=== PATIENT | female | born 1955 | race Caucasian/White ===

== ENCOUNTER 2020-06-09 08:32 | Emergency (ER) | payer OTHER ==
[~2020-06-09] VITALS: Ht 172.7 cm; Wt 82.7 kg
[2020-06-09 08:40] VITALS: BP 101/51
[2020-06-09] MEDS ORDERED: oxyCODONE/APAP 5/325 1 TAB TABLET PO ONE (09:00)
--- NOTE | 2020-06-09 09:11 | PHYS DOC ---
Past Medical History Past Medical History: High Cholesterol Past Surgical History: Cholecystectomy, Other Additional Past Surgical Histo: FACIAL SURGERY Smoking Status: Current Every Day Smoker Alcohol Use: None General Adult EDM: Chief Complaint: LOWEREXTREMITY INJURY HPI: HPI: Patient is a 64 year old female who presents to the Emergency Room complaining of right ankle pain. Patient was taking out her trash when she stepped wrong and fell. She states she heard a "crack" and has since not be able to walk on it. She denies any other injuries. Unknown last tetanus shot. Review of Systems: Review of Systems: General: Denies fever, chills, sweats, fatigue Eyes: Denies drainage, blurred vision, eye redness HENT: Denies rhinorrhea, sore throat, earache Respiratory: Denies cough, shortness of breath, wheezing Cardiac: Denies edema, palpitations, chest pain GI: Denies abdominal pain, Nausea, vomiting MSK: Denies back pain, neck pain Skin: Denies rash, jaundice Neuro: Denies headache, dizziness Psychiatric: Denies SI/HI Heart Score: Risk Factors: Risk Factors: DM, Current or recent (<one month) smoker, HTN, HLP, family history of CAD, obesity. Risk Scores: Score 0 - 3: 2.5% MACE over next 6 weeks - Discharge Home Score 4 - 6: 20.3% MACE over next 6 weeks - Admit for Clinical Observation Score 7 - 10: 72.7% MACE over next 6 weeks - Early Invasive Strategies Current Medications: Current Medications Medications (Trade) Dose Ordered Sig/Ladarius Start Time Stop Time Status Last Admin Dose Admin Oxycodone/ Acetaminophen (Percocet 5/325) 1 tab 1X ONCE 06/09/20 09:00 06/09/20 09:01 UNV Physical Exam: PE: General: Awake, alert, NAD. Well Nourished, well hydrated. Cooperative HEENT: Atraumatic, EOMI, PERRL, airway patent, moist oral mucosa Neck: Supple, trachea midline Respiratory: CTA bilaterally, normal effort, no wheezing/crackles CV: RRR, no murmur, cap refill <2 GI: Soft, nondistended, nontender, no masses MSK: RLE: swelling to ankle with medial and lateral malleolus tenerness, abrasion to mid leal, abrasion to medial and lateral ankles, abrasion to top of foot Skin: Warm, dry, see above Neuro: A&O x3, speech NL, sensory and motor grossly intact, no focal deficits Psych: Normal affect, normal mood, not suicidal or homicidal EKG: EKG: [] Radiology/Procedures: Radiology/Procedures: [] Course & Med Decision Making: Course & Med Decision Making Pertinent Labs and Imaging studies reviewed. (See chart for details) Patient is a 64 year old female who presents with R ankle pain after a fall. She has no other injuries. She has in intact range of motion distally with normal pulses and sensation. Unknown last tetanus. Tetanus will be updated today. Patient was given percocet for pain. Xray was ordered to evaluate for acute fractures. Xray shows fibula fracture. Patient placed in posterior splint. She will be discharged home with crutches and will follow up with orthopedics in 1 week. Patient's test results and vitals while in the ED were fully reviewed and discussed with the patient. Patient is stable and at this time does not need admission to the hospital. We have discussed strict return precautions and the importance of following up with their Primary Care Physician. Patient stated understanding and was given an opportunity to ask any questions. Patient is in agreement with plan. Dragon Disclaimer: Dragon Disclaimer: This electronic medical record was generated, in whole or in part, using a voice recognition dictation system. Departure Departure Impression: Primary Impression: Fibula fracture Disposition: 01 HOME, SELF-CARE Condition: STABLE Referrals: BINTA HATHAWAY MD (PCP) DIANNA PETER MD 1 week Patient Instructions: Fibular Fracture, Ankle, Adult, Treated with or without Immobilization Scripts Oxycodone/Apap 5-325 (PERCOCET 5-325 MG TABLET ) 1 Each Tablet 1 TAB PO PRN Q6HRS PRN for PAIN, #12 TAB 0 Refills Prov: TRAVIS BAH MD 06/09/20 Justicifation of Admission Dx: Justifications for Admission: Justification of Admission Dx: N/A TRAVIS BAH MD Jun 09, 2020 09:11
--- NOTE | 2020-06-09 09:32 | RAD ---
Three-view right ankle dated 06/09/2020. No comparison available. Clinical indication: Pain after injury. FINDINGS: Three-view right ankle show an oblique fracture through the distal one third fibular shaft, mildly displaced. There is overlying soft tissue swelling. There is also a probable vertically oriented fracture through the posterior malleolus. Possible subtle nondisplaced fracture of the medial malleolus. There is slight dorsal lateral subluxation of the talus relative to the distal tibia. Probable ankle joint effusion. IMPRESSION: Trimalleolar fracture-subluxation as described. Electronically signed by: Balta Tejada MD (06/09/2020 9:29 AM) [id number]
[2020-06-09] MEDS ORDERED: DIPH,PERTUSS(ACELL),TET VAC/PF 0.5 ML SYRINGE. VAX IM ONE (09:45)
[2020-06-09] MEDS ORDERED: OXYC1TAB15 PO (09:51)
== END 2020-06-09 10:30 | disposition home or self-care (01) ==
LOC: ER 08:32
DX: S82.851A Displaced trimalleolar fracture of right lower leg, initial encounter for closed fracture (principal); S82.401A Unspecified fracture of shaft of right fibula, initial encounter for closed fracture; E78.00 Pure hypercholesterolemia, unspecified; I10 Essential (primary) hypertension; W18.39XA Other fall on same level, initial encounter; Y93.89 Activity, other specified; Y92.89 Other specified places as the place of occurrence of the external cause; Y99.8 Other external cause status
CPT/HCPCS: 29515; 73610; 90471; 90715; 99284

== ENCOUNTER 2020-06-15 06:02 | Day surgery (SDC) | payer OTHER ==
[~2020-06-15] VITALS: Ht 177.8 cm; Wt 84.4 kg
[~2020-06-15 06:02] MED LIST: DOCU-109 PO; MULT-697 PO; OMEP20TA63 PO; ONDA8TAB9 PO; OXYC1TAB15 PO; PRAM0.25 PO
[2020-06-15] MEDS ORDERED: IV RINGERS,LACTATED 1000ML 1,000 ML IV SCH (07:00)
[2020-06-15] MEDS ORDERED: fentaNYL PF VIAL 100 MCG/2 ML VIAL IV PRN (07:00)
[2020-06-15] MEDS ORDERED: LIDOCAINE 1% PF 2 ML VIAL. ID PRN (07:00)
[2020-06-15] MEDS ORDERED: PROCHLORPERAZINE 10 MG/2 ML VIAL. IV PRN (07:00)
[2020-06-15] MEDS ORDERED: ONDANSETRON PF 4 MG/2 ML VIAL. IV PRN (07:00)
[2020-06-15] MEDS ORDERED: PROPOFOL 10 MG/ML (20ML) VIAL. IV ONE (07:02)
[2020-06-15] MEDS ORDERED: fentaNYL PF VIAL 100 MCG/2 ML VIAL ONE ×2 (07:03→08:40)
[2020-06-15] MEDS ORDERED: DEXAMETHASONE SOD PHOS 4 MG/ML VIAL ONE (07:03)
[2020-06-15] MEDS ORDERED: LIDOCAINE 2% PF 5 ML VIAL. ONE (07:03)
[2020-06-15] MEDS ORDERED: ONDANSETRON PF 4 MG/2 ML VIAL. ONE (07:03)
[2020-06-15] MEDS ORDERED: MIDAZOLAM HCL/PF 2 MG/2 ML VIAL. ONE (07:04)
[2020-06-15] MEDS ORDERED: LIDOCAINE 1% Multi-Dose 20 ML VIAL. ONE (07:11)
[2020-06-15] MEDS ORDERED: BUPIVACAINE MPF 0.5% 30 ML VIAL. ONE (07:11)
[2020-06-15] MEDS ORDERED: SEVOFLURANE 61 TO 120 MINUTES. IH ONE (07:25)
[2020-06-15] MEDS ORDERED: KETAMINE HCL IN NACL, ISO-OSM 50 MG/5 ML SYRINGE ONE (07:25)
[2020-06-15] MEDS ORDERED: PHENYLEPHRINE in 0.9% NACL PF 1 MG/10 ML SYRINGE. IV ONE (07:33)
[2020-06-15] MEDS ORDERED: ePHEDrine PF IN SALINE 50 MG/10 ML SYRINGE. IV ONE (08:47)
[2020-06-15] MEDS: fentaNYL PF VIAL 100 MCG/2 ML VIAL IV PRN ×2 (09:17→09:22)
[2020-06-15] MEDS ORDERED: MORPHINE SULFATE 2 MG/ML VIAL. ONE (09:29)
[2020-06-15] MEDS ORDERED: oxyCODONE/APAP 5/325 1 TAB TABLET PO ONE (09:30)
[2020-06-15] MEDS: MORPHINE SULFATE 2 MG/ML VIAL. IV PRN ×2 (09:33→09:40)
[2020-06-15] MEDS ORDERED: HYDROmorphone 2 MG/ML VIAL ONE (09:42)
[2020-06-15] MEDS: HYDROmorphone 2 MG/ML VIAL IV PRN ×2 (09:46→10:01)
--- NOTE | 2020-06-15 09:48 | DISCH ---
DISCHARGE INSTRUCTIONS Condition on Discharge Condition on Discharge: Stable Activity After Discharge Activity Instructions for Disc: Other, see below Other activity instructions: non weight bearing Bathing Instructions: Shower-keep dressing dry Weight Bearing Status after Di: Non weight bearing Diet after Discharge Diet after Discharge: Regular Wound Incision Care Wound/Incision Care: Ice to area for comfort, Keep wound/cast CDI, Do not change dressing Contacting the [facility] after DC Call your doctor for: Concerns you may have Follow-Up Follow up with: [facility] in 2 wks LEISA MCKAY II, MD Jun 15, 2020 09:48
[2020-06-15 10:15] VITALS: BP 161/70
--- NOTE | 2020-06-26 13:41 | PDOC4 ---
Operative Note Operative Note Date of procedure: 06/15/2020 Surgeon: Moustapha Mckay Front Worker: Darien Sofia Preoperative diagnosis: Closed displaced right ankle fracture Postoperative diagnosis: Same Procedure performed: Open reduction internal fixation right ankle fracture Anesthesia: General Tourniquet time: Less than 90 minutes Findings: Acute fractures at distal fibula and posterior malleolus, stable external rotation stress test after fracture fixation Blood loss: 25 mL Complications: None Components inserted: [employer]arr [employer]hew lateral distal fibula locking plate with cannulated screws from anterior to posterior 4 posterior malleolus. Reason for procedure: Patient is a very pleasant 64-year-old female who had a t wisting injury to her ankle and was sent to my clinic from the emergency department. Please see my outpatient note for further details. Her and I had a discussion of the risks, benefits, and alternatives to the above surgery and she elected to proceed. Description of procedure: Patient was greeted in the preoperative area by myself or the correct extremity was verified and marked. She was taken to the operative suite and transferred lie supine to the operating table and secured to the bed with all pressure points padded after successful induction of a general anesthetic. She received preoperative antibiotic prophylaxis. We then took her splint down and performed a chlorhexidine pre-scrub followed by a sterile prep in her usual fashion. We had applied a nonsterile tourniquet taped in place to her right thigh. After this we draped in her usual sterile fashion and conducted a standard preoperative timeout. I began the procedure by palpating and marking her surface anatomy. I then exsanguinated the extremity with an Esmarch and insufflated tourniquet to 250 mmHg. After this, I incised skin with a scalpel over her distal fibula and dissected subcutaneous tissue down to the distal fibula. I worked posterior to the distal fibula using Metzenbaum scissors to expose the posterior malleolus. I then used a metal tip suction device at both fracture sites to debride them and remove the early hematoma. I also used a small dental pick and curette to debride the distal fibular fracture site. I then used a Hohmann at the posterior malleolus and was able to manipulate the fragment into position, confirming appropriate reduction under C-arm. After this, I placed 2 wires from front to back through stab incisions, protected with a soft tissue protector, followed by measuring and drilling for the screws. I then placed 2 screws from anterior to posterior at the posterior malleolus fracture site. After this, I focused my attention at the distal fibula and selected my plate, I bent it slightly to accommodate her [place] anatomy more appropriately. I then reduce the fracture with the dental pick and a [id number] reduction clamp and held in place with a clamp. I then sized and placed my plate against bone and secured the plate to the bone above below the fracture site with nonlocking screws followed by locking screws distally and nonlocking screws proximal to the fracture site as well. After this, I removed the [id number] reduction clamp took my final images and was happy with the fracture reduction and hardware position. I then irrigated the wounds out thoroughly, we closed stab incisions anteriorly with 3-0 nylon in a simple interrupted fashion. Laterally, inverted interrupted 0 Vicryl was used for fascia, inverted affected 2 oh for subcutaneous tissue and 3-0 nylon in mattress fashion for skin. Prior to wound closure, tourniquet was let down and bleeders were cauterized. Hemostasis was ensured. After wound closure, a sterile dressing was applied after her leg was cleansed and dried followed by an AO splint. It should be noted all counts correct x2 prior to wound closure. She tolerated surgery well. No complications. At the conclusion, she is awake from anesthesia transferred on spine to the hospital bed and taken to PACU in stable and extubated condition. Postoperative plan is to discharge her home, nonweightbearing. I will see her back here in 2 weeks, sooner should a problem arise MOUSTAPHA MCKAY II, MD Jun 26, 2020 13:41
== END 2020-06-15 10:40 | disposition home or self-care (01) ==
LOC: SURG 06:02 → EDSTATUS 07:30 → SURG 10:40
PROVIDERS: ATTEND Orthopaedic Surgery Sports Medicine
DX: S82.891A Other fracture of right lower leg, initial encounter for closed fracture (principal); I10 Essential (primary) hypertension; E78.00 Pure hypercholesterolemia, unspecified; F17.210 Nicotine dependence, cigarettes, uncomplicated; Z88.8 Allergy status to other drugs, medicaments and biological substances; Z79.899 Other long term (current) drug therapy; X50.1XXA Overexertion from prolonged static or awkward postures, initial encounter; Y93.89 Activity, other specified; Y92.89 Other specified places as the place of occurrence of the external cause; Y99.8 Other external cause status
CPT/HCPCS: 27792; 76000; 87426; A7015; C1713; C1769; C1887; J0690; J1100; J1170; J2250; J2270; J2370; J2405; J2704; J3010; J3490; U0003

== ENCOUNTER → 2020-08-22 | Outpatient (CLI) | payer OTHER ==
[2020-08-22 09:42] LABS: BASO # 0.1 x10^3/uL (0.0-0.2); BASO % 1 % (0-3); EOS # 0.1 x10^3/uL (0.0-0.7); EOS % 2 % (0-3); HEMATOCRIT 44.4 % (36.0-47.0); HEMOGLOBIN 15.1 g/dL (12.0-15.5); LYMPH # 3.2 x10^3/uL (1.0-4.8); LYMPH % 37 % (24-48); MEAN CORPUSCULAR HEMOGLOBIN 30 pg (25-35); MEAN CORPUSCULAR HGB CONC 34 g/dL (31-37); MEAN CORPUSCULAR VOLUME 88 fL (79-100); MONO # 0.6 x10^3/uL (0.0-1.1); MONO % 7 % (0-9); NEUT # 4.6 x10^3/uL (1.8-7.7); NEUT % 53 % (31-73); PLATELET COUNT 311 x10^3/uL (140-400); RED BLOOD COUNT 5.02 x10^6/uL (3.50-5.40); RED CELL DISTRIBUTION WIDTH 13.4 % (11.5-14.5); WHITE BLOOD COUNT 8.7 x10^3/uL (4.0-11.0)
== END ==
LOC: LAB 08:21
PROVIDERS: ATTEND Physician Assistant
DX: M65.871 Other synovitis and tenosynovitis, right ankle and foot (principal); M25.571 Pain in right ankle and joints of right foot; G57.31 Lesion of lateral popliteal nerve, right lower limb
CPT/HCPCS: 36415; 84550; 85025; 86141

== ENCOUNTER → 2021-02-28 | Outpatient (CLI) | payer MEDICARE, OTHER ==
[2021-02-28 15:04] LABS: BASO # 0.1 x10^3/uL (0.0-0.2); BASO % 1 % (0-3); EOS # 0.1 x10^3/uL (0.0-0.7); EOS % 1 % (0-3); HEMATOCRIT 42.8 % (36.0-47.0); HEMOGLOBIN 14.7 g/dL (12.0-15.5); LYMPH # 3.1 x10^3/uL (1.0-4.8); LYMPH % 35 % (24-48); MEAN CORPUSCULAR HEMOGLOBIN 31 pg (25-35); MEAN CORPUSCULAR HGB CONC 34 g/dL (31-37); MEAN CORPUSCULAR VOLUME 89 fL (79-100); MONO # 0.7 x10^3/uL (0.0-1.1); MONO % 8 % (0-9); NEUT # 4.8 x10^3/uL (1.8-7.7); NEUT % 54 % (31-73); PLATELET COUNT 283 x10^3/uL (140-400); RED BLOOD COUNT 4.82 x10^6/uL (3.50-5.40); RED CELL DISTRIBUTION WIDTH 14.4 % (11.5-14.5); WHITE BLOOD COUNT 8.8 x10^3/uL (4.0-11.0)
== END ==
LOC: SURGPAT 13:58
PROVIDERS: ATTEND Orthopaedic Surgery
DX: Z01.818 Encounter for other preprocedural examination (principal); T84.9XXA Unspecified complication of internal orthopedic prosthetic device, implant and graft, initial encounter
CPT/HCPCS: 36415; 85025; 85651; 86140

== ENCOUNTER 2021-03-04 11:04 | Inpatient (IN) | payer MEDICARE, OTHER ==
[2021-02-28 14:40] VITALS: BP 138/61
[2021-03-04] VITALS (9 sets, daily range): BP systolic 87–153; BP diastolic 37–76
[~2021-03-04] VITALS: Ht 172.7 cm; Wt 78.5 kg
[~2021-03-04 11:04] MED LIST changes: +IV RINGERS,LACTATED 1000ML 1,000 ML IV SCH; +MORPHINE SULFATE 2 MG/ML VIAL. IVP PRN; +fentaNYL PF VIAL 100 MCG/2 ML VIAL IVP PRN
[2021-03-04] MEDS ORDERED: ONDANSETRON PF 4 MG/2 ML VIAL. ONE (11:19)
[2021-03-04] MEDS ORDERED: PROPOFOL 10 MG/ML (20ML) VIAL. IV ONE (11:19)
[2021-03-04] MEDS ORDERED: DEXAMETHASONE SOD PHOS 4 MG/ML VIAL ONE (11:19)
[2021-03-04] MEDS ORDERED: SEVOFLURANE 61 TO 120 MINUTES. IH ONE ×2 (11:19→12:52)
[2021-03-04] MEDS ORDERED: LIDOCAINE 2% PF 5 ML VIAL. ONE (11:19)
[2021-03-04] MEDS ORDERED: BUPIVACAINE-EPI 0.25% 30 ML VIAL KIT. ONE (11:21)
[2021-03-04] MEDS ORDERED: fentaNYL PF VIAL 100 MCG/2 ML VIAL ONE (12:39)
[2021-03-04] MEDS ORDERED: PHENYLEPHRINE in 0.9% NACL PF 1 MG/10 ML SYRINGE. IV ONE (12:49)
[2021-03-04] MEDS ORDERED: ceFAZolin SODIUM IV Push 1 GM VIAL. IVP ONE ×2 (12:54)
--- NOTE | 2021-03-04 13:20 | PDOC1 ---
History and Physical Date of Admission Date of Admission DATE: 03/04/21 TIME: 13:10 Identification/Chief Complaint Chief Complaint Right ankle painful hardware possible infection Source Source: Chart review, Patient History of Present Illness History of Present Illness This 65-year-old woman had a right ankle fracture, treated surgically last year by Dr. Paiz. She has reported persistent and recurrent swelling and drainage at the lateral ankle incision, and has had treatment with 3 rounds of oral antibiotics but continues to have pain and swelling and intermittent drainage. I think there are several possibilities, one would be low-grade deep infection, and the other is metal allergy. She has some numbness in the foot which was quite troublesome postoperatively. She had evaluation by Dr. Ortega for the leg numbness, and is on gabapentin, and the symptoms have started to resolve. She has some anterior to posterior screws in the distal tibia but these are not symptomatic or painful, and there would be risk of additional numbness or nerve damage with attempt at removal of those screws. I recommend only removing the lateral plate screws where the symptoms of redness pain and swelling and slight drainage are occurring. She agrees with this plan. I did recommend hospital admission and IV antibiotics, at least until cultures can be verified. Past Medical History Past Medical History Sinus issues. Restless legs. Hyperlipidemia. Past Surgical History Past Surgical History Right ankle ORIF by Dr. Paiz on 06/15/20 with lateral plate and screws and posterior malleolus screws placed anterior posterior. Starr + Nephew hardware. gall bladder 1993 face surgery 1993 Social History Smoke: <1 pack per day Current Medications Current Medications Current Medications Fentanyl Citrate (Fentanyl 2ml Vial) 25 mcg PRN Q5MIN PRN IVP MILD PAIN 1-3; Start 03/04/21 at 07:30; Stop 03/05/21 at 07:29 Fentanyl Citrate (Fentanyl 2ml Vial) 50 mcg PRN Q5MIN PRN IVP MODERATE PAIN 4- 6; Start 03/04/21 at 07:30; Stop 03/05/21 at 07:29 Morphine Sulfate (Morphine Sulfate) 1 mg PRN Q10MIN PRN IVP SEVERE PAIN 7-10; Start 03/04/21 at 07:30; Stop 03/05/21 at 07:29 Ringer's Solution 1,000 ml @ 30 mls/hr Q24H IV Last administered on 03/04/21at 11:53; Start 03/04/21 at 07:30; Stop 03/04/21 at 19:29 Hydromorphone HCl (Dilaudid) 0.5 mg PRN Q10MIN PRN IVP SEVERE PAIN 7-10, 2nd CHOICE; Start 03/04/21 at 07:30; Stop 03/05/21 at 07:29 Prochlorperazine Edisylate (Compazine) 5 mg PACU PRN PRN IVP NAUSEA, MRX1; Start 03/04/21 at 07:30; Stop 03/05/21 at 07:29 Sevoflurane (Ultane) 60 ml STK-MED ONCE IH ; Start 03/04/21 at 11:19; Stop 03/04/21 at 11:19; Status DC Lidocaine HCl (Lidocaine Pf 2% Vial) 5 ml STK-MED ONCE .ROUTE ; Start 03/04/21 at 11:19; Stop 03/04/21 at 11:19; Status DC Dexamethasone Sodium Phosphate (Decadron) 4 mg STK-MED ONCE .ROUTE ; Start 03/04/21 at 11:19; Stop 03/04/21 at 11:19; Status DC Propofol (Diprivan) 200 mg STK-MED ONCE IV ; Start 03/04/21 at 11:19; Stop 03/04/21 at 11:19; Status DC Ondansetron HCl (Zofran) 4 mg STK-MED ONCE .ROUTE ; Start 03/04/21 at 11:19; Stop 03/04/21 at 11:19; Status DC Bupivacaine HCl/ Epinephrine Bitart (Sensorcain-Epi 0.25% Kit) 30 ml STK-MED ONCE .ROUTE ; Start 03/04/21 at 11:21; Stop 03/04/21 at 11:21; Status DC Fentanyl Citrate (Fentanyl 2ml Vial) 100 mcg STK-MED ONCE .ROUTE ; Start 03/04/21 at 12:39; Stop 03/04/21 at 12:39; Status DC Phenylephrine HCl (PHENYLEPHRINE in 0.9% NACL PF) 1 mg STK-MED ONCE IV ; Start 03/04/21 at 12:49; Stop 03/04/21 at 12:49; Status DC Sevoflurane (Ultane) 60 ml STK-MED ONCE IH ; Start 03/04/21 at 12:52; Stop 03/04/21 at 12:52; Status DC Cefazolin Sodium (Ancef) 1 gm STK-MED ONCE IVP ; Start 03/04/21 at 12:54; Stop 03/04/21 at 12:54; Status DC Cefazolin Sodium (Ancef) 1 gm STK-MED ONCE IVP ; Start 03/04/21 at 12:54; Stop 03/04/21 at 12:54; Status DC Active Scripts Active Reported Centrum Adults Tablet (Multivitamin/Iron/Folic Acid) 1 Each Tablet 1 Each PO DAILY Pramipexole Dihydrochloride (Pramipexole Di-Hcl) 0.25 Mg Tablet 0.25 Mg PO TID Allergies Allergies: Coded Allergies: venlafaxine (Verified Allergy, Unknown, Hives, 06/14/20) varenicline (Verified Adverse Reaction, Severe, 06/14/20) personality change ROS Review of System OPHTHALMOLOGY: Blurred vision none. Double vision denies. Change in vision none. ENT: Hearing loss none. Change in voice denies. Rhinorrhea none. CARDIOLOGY: Palpitations none. Shortness of breath denies. Chest pain denies. CONSTITUTIONAL: Fever denies. Chills denies. Weight gain denies. Weakness none. weight loss denies. Fatigue none. GASTROENTEROLOGY: Diarrhea denies. Vomiting none. Dysphagia none. UROLOGY: Voiding normally yes. Hematuria none. MUSCULOSKELETAL: Chronic back or neck pain denies. Swelling of the feet, hands, ankles and /or legs denies. Joint pain no. Tingling/numbness no. DERMATOLOGY: Rash denies. Lumps none. NEUROLOGY: Dizziness/lightheadedness denies. Double vision, temporary blindness denies. Tingling/numbness none. PSYCHOLOGY: Change in mood or personality denies. Memory loss none. ENDOCRINOLOGY: Obesity denies. Fatigue none. Weight loss none. HEMATOLOGY/LYMPH: Hepatitis denies. See HPI I did receive lab results regarding her CBC and her WBC was in the 8000 range within normal limits. No other hematologic abnormalities were observed as well when I reviewed that report.. Enlarged lymph nodes denies. Physical Exam General: Alert, Cooperative HEENT: Atraumatic Lungs: Normal air movement Heart: RRR Abdomen: Soft Extremities: Other (The RIGHT ankle shows a well healed incision from past ORIF surgery. There is a less than 1 cm open wound with erythema and punctate scar with stitch abscess. No exposed hardware. There is decree sensation of the lateral calf, onto the lateral and top of the foot.) Skin: Other (small open wound lateral ankle) Vitals Vitals Vital Signs Date Time Temp Pulse Resp B/P (MAP) Pulse Ox O2 Delivery O2 Flow Rate FiO2 03/04/21 11:52 97.6 84 20 153/76 95 Room Air 97.6 Labs Labs ESR 10, C-reactive protein 3.8 Images Images [facility] [address] [place] [address] IMAGING REPORT Signed PATIENT: MICK GONZALEZ ACCOUNT: [id number] : 1955 LOCATION: [facility] AGE: 65 SEX: F EXAM STATUS: REG CLI ORD. PHYSICIAN: MAGEN KEITH MD REASON: F/U RT ANKLE PROCEDURE: ANKLE RIGHT 3V EXAM: Left ankle, 3 views. HISTORY: Fracture follow-up. COMPARISON: 01/08/2021 FINDINGS: 3 views of the right ankle are obtained. There is internal fixation of healed distal fibular metaphyseal and posterior malleolar fractures. There is mild lateral predominant soft tissue swelling. The ankle mortise is intact. There is no ossicular lesion. There is a small plantar spur. IMPRESSION: Internal fixation of healed distal fibular metaphyseal and posterior malleolar fractures. No acute osseous finding. Electronically signed by: Serenity Lemus MD (02/12/2021 1:00 PM) [id number] VTE Prophylaxis Ordered VTE Prophylaxis Devices: Yes VTE Pharmacological Prophylaxi: Yes Assessment/Plan Assessment/Plan She has painful hardware, with intermittent drainage, erythema and tenderness. There is a chance that there is a low-grade deep infection, with bone involvement. There are other possibilities such as metal allergy. Her C- reactive protein is only slightly elevated. I recommended surgical removal of the hardware, intraoperative cultures, and infectious disease consultation for treatment of the possible low-grade deep osteomyelitis. She would need to be admitted to the hospital at least briefly to follow those cultures and decide on antibiotic treatment. She agrees with that plan. Justifications for Admission Other Justification MAGEN KEITH MD Mar 04, 2021 13:19
--- NOTE | 2021-03-04 13:27 | PDOC4 ---
Operative Note Operative Note Date of Procedure: March 04, 2021 Pre-Op Diagnosis: Mechanical complication of internal fixation device of bone of right lower leg, initial encounter T84.196A Post-Op Diagnosis: same Procedure: CPT 04992 removal of implant deep (e.g., buried wire, pin, screw, nail, elías, or plate) right fibula Surgeon: Magen Tristan MD Stereoptic Projection Topographer: Darien THOMPSON Anesthesia: General EBL: 25 mL Specimens Obtained: * Swab cultures of the right ankle hardware. * Area of soft bone of the fibula was biopsied with a rongeurs and sent as a culture in a specimen cup. Complications: none Drains: none Tourniquet: 5 minutes at 300 mmHg Findings: There was no umm purulence. One of the screws was loose at the distal portion of the plate, and the bone beneath this was soft. I sent a small piece of that soft fibula bone for culture in a specimen cup. Indications for Procedure: The patient is a 65 year old with mechanical complications of retained hardware of the right fibula and a possible deep infection although not confirmed. The patient and I discussed the risks, benefits and alternatives of surgery. I recommended hardware removal but I discussed the potential risks of refracture, infection, bleeding, blood clots, neurovascular injury, or other potential surgical or anesthetic complications. All of her questions were answered and she desired to proceed with surgery. Procedure in Detail: The patient was identified in the preoperative holding area. The correct right fibula incision was marked by me. The patient was taken to the operating room where general anesthetic was used. The patient was positioned on the operating table. Antibiotics were held until swab cultures could be obtained. A timeout procedure was performed. A tourniquet was placed on the upper thigh. The limb was prepared in sterile fashion with ChloraPrep and sterile drapes were applied. The prior scar was used for the incision, over the lateral ankle at the fibula lateral malleolus. A lateral incision was made over the plate and screws. Sharp dissection was used and Bovie electrocautery was used only as needed for h emostasis. Swab cultures were taken of the distal cluster where the intermittent drainage had been occurring. One of the screws in this area is loose. There is no umm pus. After the swab culture was taken, Ancef was given intravenously, and the limb was elevated to exsanguinated and the tourniquet was inflated. The plate and all screws were identified, and removed with a screwdriver. Irregularities on the bone from the screw holes were freshened up with a rongeur. There is an area of soft bone of the distal fibula, and I biopsied this with the rongeurs, and sent this as a tissue culture in a specimen cup. The tourniquet was released. Copious saline irrigation was used. The incisions were closed with 2-0 Vicryl and #3-0 Prolene. Xeroform and a sterile dressing were applied. Needle and sponge counts were correct. There were no apparent complications. MAGEN TRISTAN MD Mar 04, 2021 13:27
[2021-03-04] MEDS ORDERED: ONDANSETRON PF 4 MG/2 ML VIAL. IVP PRN (13:30)
[2021-03-04] MEDS ORDERED: POLYETHYLENE GLYCOL 3350 17 GM PACKET. PO PRN (13:30)
[2021-03-04] MEDS ORDERED: MORPHINE SULFATE 4 MG/ML VIAL. IVP PRN (13:30)
[2021-03-04] MEDS ORDERED: DEXTROSE 50% 25 GM / 50ML DISP.SYRIN. IV PRN (13:30)
[2021-03-04] MEDS ORDERED: fentaNYL PF VIAL 100 MCG/2 ML VIAL IVP PRN (13:30)
[2021-03-04] MEDS ORDERED: PROCHLORPERAZINE 10 MG/2 ML VIAL. ONE (13:41)
[2021-03-04] MEDS: PROCHLORPERAZINE 10 MG/2 ML VIAL. IVP PRN ×2 (13:45→14:00)
[2021-03-04] MEDS: fentaNYL PF VIAL 100 MCG/2 ML VIAL IVP PRN ×2 (13:46→13:59)
[2021-03-04] MEDS: MORPHINE SULFATE 2 MG/ML VIAL. IVP PRN ×2 (13:47→23:39)
[2021-03-04] MEDS ORDERED: HYDROmorphone 2 MG/ML VIAL ONE (14:07)
[2021-03-04] MEDS: HYDROmorphone 2 MG/ML VIAL IVP PRN ×2 (14:12→14:27)
[2021-03-04] MEDS: IV 1/2 NORMAL SALINE 1,000 ML IV SCH (18:34)
[2021-03-04] MEDS: PRAMIPEXOLE 0.25 MG TABLET. PO SCH (21:43)
[2021-03-04] MEDS: GABAPENTIN 300 MG CAPSULE. PO SCH (22:19)
[2021-03-05 03:00] VITALS: BP 131/65
[2021-03-05] MEDS: MORPHINE SULFATE 2 MG/ML VIAL. IVP PRN (05:12)
[2021-03-05] MEDS ORDERED: MAGNESIUM HYDROXIDE 2,400 MG/30 ML ORAL.SUSP. PO PRN (06:00)
[2021-03-05 07:00] VITALS: BP 134/55
[2021-03-05] MEDS: GABAPENTIN 300 MG CAPSULE. PO SCH ×3 (09:26→21:56)
[2021-03-05] MEDS: IV 1/2 NORMAL SALINE 1,000 ML IV SCH ×2 (09:26→16:10)
[2021-03-05] MEDS: MULTIVITAMIN with MINERAL TABLET. PO SCH (09:26)
[2021-03-05] MEDS: SENNOSIDES/DOCUSATE 8.6/50MG TABLET. PO SCH (09:26)
[2021-03-05] MEDS: CHOLECALCIFEROL (VITAMIN D3) 1,000 UNIT TABLET PO SCH (09:27)
[2021-03-05] MEDS: PRAMIPEXOLE 0.25 MG TABLET. PO SCH ×3 (09:27→21:56)
[2021-03-05] MEDS: ASPIRIN 325 MG TABLET PO SCH (09:27)
[2021-03-05 11:00] VITALS: BP 132/52
--- NOTE | 2021-03-05 11:56 | NUR ---
SW following. Discussed with RN, pt from home, room air, regular diet. Pt had surgery 03/04/21. OT recommending home. ID consulted. SW will continue to follow.
[2021-03-05 11:59] LABS: CREATININE 0.8 mg/dL (0.6-1.0)
[2021-03-05] MEDS: DAPTOmycin (GENERIC) IVPB 420 MG in IV NORMAL SALINE 50ML 50 ML IV SCH (13:04)
--- NOTE | 2021-03-05 13:07 | PDOC ---
PROGRESS NOTES Date of Service DATE: 03/05/21 TIME: 13:05 Subjective Subjective Doing well. ID involved. No results yet from cultures. Objective Vital Signs Vital Signs Date Time Temp Pulse Resp B/P (MAP) Pulse Ox O2 Delivery O2 Flow Rate FiO2 03/05/21 11:00 97.9 64 18 132/52 (78) 94 Room Air 97.9 03/04/21 23:39 2.0 Physical Exam Dressing dry. NVI. Calf soft NT Labs GRAM STAIN Final Final GRAM POSITIVE COCCI:RARE RBC:MANY SQUAMOUS EPI CELL:NONE SEEN PMN (WBCs):RARE Unless otherwise specified, Testing Performed by: [address] [id number] For Inquires, the Physician may contact the Microbiology department at [phone] ANAEROBIC-AEROBIC CULTURE GRAM STAIN Final Final NO ORGANISMS SEEN. RBC:MANY SQUAMOUS EPI CELL:NONE SEEN PMN (WBCs):FEW Unless otherwise specified, Testing Performed by: [address] [address] For Inquires, the Physician may contact the Microbiology department at [phone] ANAEROBIC-AEROBIC CULTURE PENDING Laboratory Tests Test 03/05/21 10:50 Creatinine 0.8 mg/dL (0.6-1.0) Estimated GFR (Cockcroft-Gault) 72.0 Creatine Kinase 100 U/L (26-192) Laboratory Tests Test 03/05/21 10:50 Creatinine 0.8 mg/dL (0.6-1.0) Estimated GFR (Cockcroft-Gault) 72.0 Creatine Kinase 100 U/L (26-192) Assessment Assessment POD#1 after hardware removal. There was definitely a locking screw which had loosened and could cause inflammation, however the loose screw is also concerning that there could be an underlying infection. If infection is present with deep osteomyelitis it is fairly low-grade but if cultures of the bone come back positive I would favor 6 weeks of IV antibiotics. If cultures remain negative we could consider other options. Plan Plan of Care Waiting on culture results. Gram stain does show GPC. Appreciate ID input. Discussed results with patient. Justicifation of Admission Dx: Justifications for Admission: Justification of Admission Dx: N/A MAGEN KEITH MD Mar 05, 2021 13:07
[2021-03-05 15:00] VITALS: BP 151/73
[2021-03-05] MEDS ORDERED: BISACODYL 10 MG SUPP.RECT. PR PRN (16:00)
--- NOTE | 2021-03-05 18:51 | CONS ---
DATE OF CONSULTATION: 03/04/2021 REQUESTING PHYSICIAN: Lenin Tristan MD REASON FOR CONSULTATION: Infected ankle hardware, status post hardware removal. HISTORY OF PRESENT ILLNESS: This is a 65-year-old female who has had an ankle fracture, ORIF done last year by Dr. Sullivan. The patient says she continued to have pain afterwards. It healed until September of this year, there is an area opened up and started draining. The patient had been to see Ortho PA multiple times including 3 rounds of oral antibiotics and then finally it was decided to take her to the surgery. The patient underwent surgery yesterday and the hardware was removed. The patient did have the area of soft bone into the fibula, which was biopsied and cultured. Initial Gram stain is showing gram-positive cocci. The patient is on cefazolin and consult has been requested. PAST MEDICAL HISTORY: Positive for ankle fracture status post ORIF. The patient has hyperlipidemia, gastroesophageal reflux disease. PAST SURGICAL HISTORY: She has had cholecystectomy, jaw bone repair done in the past. SOCIAL HISTORY: Positive for alcohol use, occasional. Positive for smoking. No drug use. ALLERGIES: LISTED ALLERGIC TO VENLAFAXINE AND VARENICLINE. MEDICATIONS: Reviewed. The patient is on cefazolin. REVIEW OF SYSTEMS: As per HPI. All other systems reviewed and are negative. PHYSICAL EXAMINATION: GENERAL: Alert, oriented female, not in any distress. VITAL SIGNS: Stable. Temperature 97.4, pulse 67, respirations 18, blood pressure 134/55. HEENT: Both pupils are round and reactive. No conjunctival lesion, no lesion in the mouth. NECK: Supple, no JVP, no lymphadenopathy. LUNGS: Clear. HEART: S1, S2 regular. ABDOMEN: Soft, nontender. No organomegaly. EXTREMITIES: No edema or cyanosis. SKIN: Unremarkable. Post-surgical dressing from the right ankle, not open. NEUROLOGIC: The patient is alert, awake, appropriate. No focal neurologic deficit. LABORATORY DATA: White count is 8.8, hemoglobin 14.7, platelets are normal. Sed rate is 10. BUN and creatinine is not done. CRP is 3.8. The Gram stain as I mentioned earlier, her ankle x-ray on 02/12 was unremarkable. IMPRESSION: 1. Infected right ankle, status post hardware removal on 03/04/2021. 2. Hypertension. 3. Hyperlipidemia. 4. Gastroesophageal reflux disease. 5. Tobaccoism. We would change cefazolin to daptomycin. We will get BUN and creatinine done. Supportive care. Wait for the cultures and continue to follow. Thank you very much Dr. Tristan for giving me opportunity to participate in this patient's care. RON/SHORTY DR: RON/jeramie TID: [id number]
[2021-03-05 19:00] VITALS: BP 115/67
[2021-03-05] MEDS: LACTOBACILLUS RHAMNOSUS GG 1 CAPSULE. PO SCH (21:56)
[2021-03-05 22:57] VITALS: BP 122/46
[2021-03-06] MEDS: IV 1/2 NORMAL SALINE 1,000 ML IV SCH (05:30)
[2021-03-06 07:00] VITALS: BP 119/61
[2021-03-06] MEDS: SENNOSIDES/DOCUSATE 8.6/50MG TABLET. PO SCH (09:00)
[2021-03-06] MEDS: PRAMIPEXOLE 0.25 MG TABLET. PO SCH ×2 (09:47→15:29)
[2021-03-06] MEDS: MULTIVITAMIN with MINERAL TABLET. PO SCH (09:47)
[2021-03-06] MEDS: CHOLECALCIFEROL (VITAMIN D3) 1,000 UNIT TABLET PO SCH (09:47)
[2021-03-06] MEDS: LACTOBACILLUS RHAMNOSUS GG 1 CAPSULE. PO SCH (09:47)
[2021-03-06] MEDS: ASPIRIN 325 MG TABLET PO SCH (09:47)
[2021-03-06] MEDS: GABAPENTIN 300 MG CAPSULE. PO SCH ×2 (09:47→15:29)
[2021-03-06 11:00] VITALS: BP 160/86
--- NOTE | 2021-03-06 11:01 | PDOC ---
Infectious Disease Note Subjective Subjective Patient is feeling good ROS ROS No nausea vomiting diarrhea chest pain shortness of breath Vital Sign Vital Signs Vital Signs Date Time Temp Pulse Resp B/P (MAP) Pulse Ox O2 Delivery O2 Flow Rate FiO2 03/06/21 07:00 97.9 63 17 119/61 (80) 97 Nasal Cannula 3.0 97.9 Physical Exam PHYSICAL EXAM GENERAL: Alert, oriented female, not in any distress. VITAL SIGNS: Stable. HEENT: Both pupils are round and reactive. No conjunctival lesion, no lesion in the mouth. NECK: Supple, no JVP, no lymphadenopathy. LUNGS: Clear. HEART: S1, S2 regular. ABDOMEN: Soft, nontender. No organomegaly. EXTREMITIES: No edema or cyanosis. SKIN: Unremarkable. Post-surgical dressing from the right ankle, not open. NEUROLOGIC: The patient is alert, awake, appropriate. No focal neurologic deficit. Labs Lab Laboratory Tests Test 03/05/21 10:50 Creatinine 0.8 mg/dL (0.6-1.0) Estimated GFR (Cockcroft-Gault) 72.0 Creatine Kinase 100 U/L (26-192) Micro Microbiology 03/04/21 Gram Stain - Final, Resulted 03/04/21 Aerobic and Anaerobic Culture, Resulted Pending Objective Assessment IMPRESSION: 1. Infected right ankle, status post hardware removal on 03/04/2021. 2. Hypertension. 3. Hyperlipidemia. 4. Gastroesophageal reflux disease. 5. Tobaccoism. Plan Plan of Care picc d/c on dapto and invanz culture so far G + cocci PICC line and antibiotics need and complications/side effects discussed with the patient Probiotics Weekly blood work Follow-up with me in 2 weeks Discussed with OKSANA Richardson MD Mar 06, 2021 11:01
[2021-03-06] MEDS: DAPTOmycin (GENERIC) IVPB 420 MG in IV NORMAL SALINE 50ML 50 ML IV SCH (12:13)
--- NOTE | 2021-03-06 12:34 | NUR ---
SHEKHAR following. Discussed with RN, pt from home, room air, regular diet. Pt needing rn long term care IV abx (Dapto and Invanz). SHEKHAR met with pt, pt agreeable to outpatient infusion at [facility]. SHEKHAR faxed script and clinicals to [facility] outpatient. Pt would like infusion time to be first thing in the morning. Awaiting confirmation. Pt getting PICC line today, needs to be seen by Dr. Tristan prior to discharge. Pt wants to go home today. SHEKHAR will continue to follow. Addendum: 03/06/21 at 1412 by OLIVIA CORRIGAN Outpatient infusion arranged for 8am starting tomorrow (03/07/21), pending Dr. Tristan seeing pt. RN notified.
[2021-03-06] MEDS ORDERED: LIDOCAINE WITH 8.4% SOD BICARB 3 ML DISP.SYRIN. ONE (12:38)
[2021-03-06] MEDS ORDERED: LIDOCAINE WITH 8.4% SOD BICARB 3 ML DISP.SYRIN. INJ ONE (13:15)
--- NOTE | 2021-03-06 13:29 | RAD ---
Date: 03/06/2021 Exam: Fluoroscopic and ultrasound guided peripheral central venous catheter placement. Indication: Consent: The procedure was explained in its entirety to the patient or the patients designated repres entative by a member of the treatment team, including a discussion of the risks, benefits and commonl y accepted alternatives to the procedure, as well as the expected consequences of no therapy whatsoev er. Discussion of the risks included, but was not limited to, those that are most frequent and thos e that are rare but possibly severe or life-threatening, as well as the possibility of unforeseen com plications. Discussion: A timeout procedure was performed. The patient was prepped and draped using maximum sterile techniq ue, including the use of: Current guideline approved cutaneous antisepsis, a large sterile sheet to e stablish a sterile field. Additionally the lighting equipment operator wore a hat, mask, sterile gloves, a sterile gown during the procedure as well as practiced acceptable hand hygiene prior to placing the line. 1% lidoc uriah was administered for local anesthesia. Ultrasound evaluation demonstrates a patent basilic vein. Reference images were saved in the medical record. The selected vein was accessed using micropuncture technique. A guidewire was advanced centr ally. The PICC line was cut to length, and advanced through a peel-away sheath such that it's tip re sides at the cavoatrial junction. The peel-away sheath a sheath was removed. The catheter was secured in place. The catheter was found to flush and aspirate normally.. Sterile dressings were applied. No immediate complications were identified. Fluoroscopy time: Point. Minutes Dose area product: Point Gycm2 Impression: Successful placement of a right upper extremity PICC line Electronically signed by: David Ruiz MD (03/06/2021 1:27 PM) [id number]
[2021-03-06 15:00] VITALS: BP 137/73
[2021-03-06] MEDS ORDERED: ERTAPENEM 1GM IVPB(GENERIC) NS 50 ML IV ONE (15:00)
--- NOTE | 2021-03-06 17:12 | PDOC ---
PROGRESS NOTES Date of Service DATE: 03/06/21 TIME: 17:11 Subjective Subjective Ankle has slight swelling and pain, otherwise doing well. No drainage. Objective Vital Signs Vital Signs Date Time Temp Pulse Resp B/P (MAP) Pulse Ox O2 Delivery O2 Flow Rate FiO2 03/06/21 15:00 98.4 70 17 137/73 (94) 95 Room Air 98.4 03/06/21 07:00 3.0 Physical Exam Dressing was removed and incision examined. This is dry and intact. There is slight swelling as expected with recent surgery. Labs Laboratory Tests Test 03/05/21 10:50 Creatinine 0.8 mg/dL (0.6-1.0) Estimated GFR (Cockcroft-Gault) 72.0 Creatine Kinase 100 U/L (26-192) Assessment Assessment Status post hardware removal. Possible deep osteomyelitis infection of the fibula. Plan Plan of Care IV antibiotics per infectious disease. Home today. Aspirin daily for 30 days to prevent blood clots. Office follow-up in about 10 days. Justicifation of Admission Dx: Justifications for Admission: Justification of Admission Dx: N/A MAGEN KEITH MD Mar 06, 2021 17:12
--- NOTE | 2021-03-06 18:40 | NUR ---
Discharge Note: MICK GONZALEZ Discharge instructions and discharge home medications reviewed with Patient and a copy given. All questions have been answered and understanding verbalized. The following instructions and handouts were given: information about wound care, follow up appointments, medications, diet, activity, etc. Discontinued lines and drains: DL PICC RUE left in place for technician terminal and repeater antibiotics. Patient discharged to home with self care with , wheelchair used for mobility to discharge vehicle.
[2021-03-07] MEDS ORDERED: NORMAL SALINE IV SCH (06:15)
[2021-03-07] MEDS ORDERED: DAPTOMYCIN IV SCH (06:15)
[2021-03-07] MEDS ORDERED: ERTAPENEM 1GM IVPB(GENERIC) NS 50 ML IV ONE (06:15)
== END 2021-03-06 18:40 | disposition home or self-care (01) | DRG 478 ==
LOC: OPSVCIP 11:04 → 4 NORTH 15:17
PROVIDERS: ADMIT Orthopaedic Surgery; ATTEND Orthopaedic Surgery
PROC: 0QBJ0ZX Excision of Right Fibula, Open Approach, Diagnostic (ICD-10-PCS; 2021-03-04)
PROC: 0QPJ04Z Removal of Internal Fixation Device from Right Fibula, Open Approach (ICD-10-PCS; principal; 2021-03-04 12:45)
PROC: 02HV33Z Insertion of Infusion Device into Superior Vena Cava, Percutaneous Approach (ICD-10-PCS; 2021-03-06)
PROC: B5181ZA Fluoroscopy of Superior Vena Cava using Low Osmolar Contrast, Guidance (ICD-10-PCS; 2021-03-06)
PROC: B548ZZA Ultrasonography of Superior Vena Cava, Guidance (ICD-10-PCS; 2021-03-06)
DX: T84.624A Infection and inflammatory reaction due to internal fixation device of right fibula, initial encounter (principal); M86.9 Osteomyelitis, unspecified; E78.5 Hyperlipidemia, unspecified; F17.210 Nicotine dependence, cigarettes, uncomplicated; G25.81 Restless legs syndrome; I10 Essential (primary) hypertension; K21.9 Gastro-esophageal reflux disease without esophagitis; Y83.8 Other surgical procedures as the cause of abnormal reaction of the patient, or of later complication, without mention of misadventure at the time of the procedure; Y92.89 Other specified places as the place of occurrence of the external cause; Z90.49 Acquired absence of other specified parts of digestive tract; Z88.8 Allergy status to other drugs, medicaments and biological substances
CPT/HCPCS: 36415; 36573; 77001; 82550; 82565; 87071; 87075; 87077; A4930; A6253; A6402; A6449; A6455; C1751; C1892; J0690; J0780; J0878; J1100; J1170; J1335; J2270; J2370; J2405; J2704; J3010; J3490; J7120; 97116-GP; 97530-GP; 97535-GO; G0378

== ENCOUNTER 2021-09-24 06:11 | Day surgery (SDC) | payer MEDICARE, OTHER ==
[~2021-09-24] VITALS: Ht 177.8 cm; Wt 84.2 kg
[~2021-09-24 06:11] MED LIST changes: +AMOX1TAB11 PO; +DOXY100C3 PO; +GABA600T7 PO; +HYDROmorphone 2 MG/ML INJ. IVP PRN; +MORPHINE SULFATE 2 MG/ML INJ. IVP PRN; -MORPHINE SULFATE 2 MG/ML VIAL. IVP PRN; +PRAV10TA2 PO; +PROCHLORPERAZINE 10 MG/2 ML VIAL. IVP PRN
[2021-09-24] MEDS ORDERED: PROPOFOL 10 MG/ML (20ML) VIAL. IV ONE (06:38)
[2021-09-24] MEDS ORDERED: LIDOCAINE 2% PF 5 ML VIAL. ONE (06:38)
[2021-09-24 06:39] VITALS: BP 138/72
[2021-09-24] MEDS ORDERED: fentaNYL PF VIAL 100 MCG/2 ML VIAL ONE ×2 (07:02→08:27)
[2021-09-24] MEDS ORDERED: FAMOTIDINE 20 MG/2 ML VIAL ONE (07:02)
[2021-09-24] MEDS ORDERED: DEXAMETHASONE SOD PHOS 4 MG/ML VIAL ONE (07:02)
[2021-09-24] MEDS ORDERED: KETOROLAC 30 MG/ML VIAL. ONE (07:03)
[2021-09-24] MEDS ORDERED: BUPIVACAINE MPF 0.5% 30 ML VIAL. ONE (07:13)
[2021-09-24] MEDS ORDERED: LIDOCAINE 1% PF 30 ML VIAL. ONE (07:13)
--- NOTE | 2021-09-24 07:33 | DISCH ---
DISCHARGE INSTRUCTIONS Condition on Discharge Condition on Discharge: Stable Activity After Discharge Activity Instructions for Disc: Other, see below Other activity instructions: no running. jumping, athletics Bathing Instructions: Shower-keep dressing dry Weight Bearing Status after Di: As tolerated, Non weight bearing Diet after Discharge Diet after Discharge: Regular Wound Incision Care Wound/Incision Care: Ice to area for comfort, Keep wound/cast CDI, Do not change dressing Contacting the DR. after DC Call your doctor for: Concerns you may have Follow-Up Follow up with: Chencho in 2wks LEISA MCKAY II, MD Sep 24, 2021 07:32
[2021-09-24] MEDS ORDERED: ePHEDrine PF IN SALINE 50 MG/10 ML SYRINGE. IV ONE (08:16)
[2021-09-24] MEDS ORDERED: SEVOFLURANE 31 TO 60 MINUTES. IH ONE (08:22)
--- NOTE | 2021-09-24 08:27 | PDOC4 ---
Operative Note Operative Note Date of procedure: 09/24/2021 Surgeon: Moustpaha Mckay Profile Trimmer: Darien Sofia Preoperative diagnosis: Possible ankle infection with retained hardware Postoperative diagnosis: Same Procedure performed: Right ankle hardware removal Anesthesia: General Tourniquet time: Less than 30 minutes Findings: No gross purulence. Specimens: Swabs were taken of screws as well as superficially Complications: None Reason for procedure: Patient is a very pleasant 65-year-old female who had a ORIF of her ankle fracture and a delayed wound dehiscence treated with IV antibiotics, oral antibiotics and hardware removal of the distal fibula plate. Given concerns over her continued pain and infectious disease concerns over possible continued infection, the patient and I had a discussion of the risks, benefits, alternatives and rationale to removing the remaining hardware and she wished to proceed. Description of procedure: Patient was greeted in the preoperative area by myself where the correct extremity was marked and verified. She was taken to the operative suite, antibiotics were started as she was brought back. Once in the operating room, she was transferred gently supine to the operating table and secured to the bed with all pressure points padded. Nonsterile tourniquet taped in place to her right thigh. She had successful induction of a general anesthetic. We then proceeded to prep and drape right lower extremity in her usual sterile fashion and conducted our standard preoperative timeout. I then brought in C arm to confirm the position of the screws and made small quintana on her skin in accordance with this. We then exsanguinated the extremity and insufflated tourniquet to 250 mmHg. After accomplishing this, I incised the skin over the lateral screw and bluntly spread down to periosteum with a small curved hemostat. I then used a small freer elevator to open the periosteum and identified the screw head. I used a dental pick to remove a small amount of bone over the lateral aspect of the screw head and remove fibrotic tissue from the central portion. I was then able to easily deliver the screw without complication. After this, I made an incision over the medial screw, spread down to periosteum with my small curved hemostat and then used a [place] to dissect under the periosteum and fibrotic tissue over the other screw head. No bony overgrowth on this 1. I then delivered the screw easily from the operative field. I took cultures of the screws as well as at the incisions. I noted no gross purulence. No sign of any necrotic or inflamed tissue as well. After this, the wounds were thoroughly irrigated. Hemostasis was ensured and tourniquet was let down. Inverted interrupted 2 oh was used for subcutaneous tissue and simple interrupted 3-0 nylon was used for skin. Local anesthetic was injected into the periincisional soft tissues. She tolerated surgery well. At the conclusion, the foot and ankle were cleansed and dried and a soft dressing was applied. She was awakened from anesthesia and transferred gently supine to the recovery room cart and taken to PACU in stable and extubated condition. Postoperative plan is for to weight-bear as tolerated, I discussed with her and her to avoid any athletics or impact activity. I will see her back in 2 weeks, sooner should a problem arise. MOUSTAPHA MCKAY II, MD Sep 24, 2021 08:27
[2021-09-24] MEDS ORDERED: oxyCODONE/APAP 5/325 1 TAB TABLET ONE (09:19)
[2021-09-24 09:20] VITALS: BP 120/65
[2021-09-24] MEDS ORDERED: oxyCODONE/APAP 5/325 1 TAB TABLET PO ONE (09:30)
== END 2021-09-24 09:41 | disposition home or self-care (01) ==
LOC: SURG 06:11
PROVIDERS: ATTEND Orthopaedic Surgery Sports Medicine
DX: Z47.2 Encounter for removal of internal fixation device (principal); M25.571 Pain in right ankle and joints of right foot; E78.00 Pure hypercholesterolemia, unspecified; E66.9 Obesity, unspecified; K21.9 Gastro-esophageal reflux disease without esophagitis; F17.210 Nicotine dependence, cigarettes, uncomplicated; Z90.49 Acquired absence of other specified parts of digestive tract; Z98.890 Other specified postprocedural states; Z79.899 Other long term (current) drug therapy; Z88.8 Allergy status to other drugs, medicaments and biological substances
CPT/HCPCS: 27704; 87071; 87075; 87102; A4209; A4930; A6402; A6449; J0690; J1100; J1885; J2704; J3010; J3490; 76000; A4452; A6224

== ENCOUNTER → 2021-12-18 | Day surgery (SDC) | payer MEDICARE, OTHER ==
[~2021-12-18] VITALS: Ht 170.2 cm; Wt 77.2 kg
[~2021-12-18] MED LIST changes: +LIDOCAINE 2% PF 5 ML VIAL. ONE; +PROPOFOL 10 MG/ML (20ML) VIAL. IV ONE
[2021-12-18 07:48] VITALS: BP 119/63
--- NOTE | 2021-12-18 09:13 | PDOC2 ---
CONSULT Date of Consult Date of Consult DATE: 12/18/21 TIME: 09:06 Reason for Consult Reason for Consult: History of colon polyps Identification/Chief Complaint Chief Complaint 66 yo Femal seen with history of colon polyps. Surveillance colonoscopy is recommended at this time. No bleeding, change in bowel habits and/or family history of colon cancer is noted. Weight and appetite are stable. She otherwise is without additional complaints. Past Medical History Pulmonary: COPD Past Surgical History Past Surgical History: Cholecystectomy Family History Family History: No Significant Social History # pack years (75) ALCOHOL: none Current Medications Current Medications Current Medications Fentanyl Citrate (Fentanyl 2ml Vial) 25 mcg PRN Q5MIN PRN IVP MILD PAIN 1-3; Start 12/18/21 at 06:00; Stop 12/19/21 at 05:59 Fentanyl Citrate (Fentanyl 2ml Vial) 50 mcg PRN Q5MIN PRN IVP MODERATE PAIN 4- 6; Start 12/18/21 at 06:00; Stop 12/19/21 at 05:59 Morphine Sulfate (Morphine Sulfate) 1 mg PRN Q10MIN PRN IVP SEVERE PAIN 7-10; Start 12/18/21 at 06:00; Stop 12/19/21 at 05:59 Ringer's Solution 1,000 ml @ 30 mls/hr Q24H IV Last administered on 12/18/21at 07:53; Start 12/18/21 at 06:00; Stop 12/18/21 at 17:59 Hydromorphone HCl (Dilaudid) 0.5 mg PRN Q10MIN PRN IVP SEVERE PAIN 7-10, 2nd CHOICE; Start 12/18/21 at 06:00; Stop 12/19/21 at 05:59 Prochlorperazine Edisylate (Compazine) 5 mg PACU PRN PRN IVP NAUSEA, MRX1; Start 12/18/21 at 06:00; Stop 12/19/21 at 05:59 Propofol (Diprivan) 200 mg STK-MED ONCE IV ; Start 12/18/21 at 09:04; Stop 12/18/21 at 09:04; Status DC Active Scripts Active Reported Doxycycline Hyclate 100 Mg Capsule 100 Mg PO BID Amox Tr-K Clv 875-125 Mg Tab (Amoxicillin/Potassium Clav) 1 Each Tablet 1 Tab PO BID Gabapentin 600 Mg Tablet 300 Mg PO TID Pravastatin Sodium 10 Mg Tablet 10 Mg PO DAILY Centrum Adults Tablet (Multivitamin/Iron/Folic Acid) 1 Each Tablet 1 Each PO DAILY Pramipexole Dihydrochloride (Pramipexole Di-Hcl) 0.25 Mg Tablet 0.25 Mg PO PRN DAILY PRN Allergies Allergies: Coded Allergies: venlafaxine (Verified Allergy, Intermediate, Hives, 12/18/21) varenicline (Verified Adverse Reaction, Severe, 12/18/21) personality change Physical Exam General: Alert, Oriented X3 Lungs: Clear to auscultation Heart: Regular rate, Normal S1, Normal S2 Abdomen: Normal bowel sounds, Soft, No tenderness Vitals VITALS Vital Signs Date Time Temp Pulse Resp B/P (MAP) Pulse Ox O2 Delivery O2 Flow Rate FiO2 12/18/21 07:48 97.7 84 22 94 97.7 Assessment/Plan Assessment/Plan Colorectal cancer screening- with history of polyps, surveillance colonoscopy is recommended at this time. R/B discussed with patient who is willing to proceed. EMEKA TUCKER MD Dec 18, 2021 09:12
[2021-12-18 10:05] VITALS: BP 138/60
--- NOTE | 2021-12-19 14:11 | PATHOLOGY ---
[facility] Accession Number: [id number] . 01 Material submitted: . PART A: rectum - RECTAL POLYP BIOPSY PART B: sigmoid colon - SIGMOID POLYPECTOMY BIOPSY PART C: colon - TRANSVERSE COLON POLYP BIOPSY. Modifiers: transverse . 01 Clinical history: . HX POLYPS . 02 Diagnosis: A. Colorectal mucosa, rectal polyp biopsies: - Hyperplastic polyps. . B. Colonic mucosa, sigmoid polypectomy: - Hyperplastic polyp. . C. Colonic mucosa, transverse colon polyp biopsies: - Tubular adenomas. (JPM:tessy; 12/19/2021) S 12/19/2021 1028 Local . 02 Comment: There is no high grade dysplasia or evidence of malignancy. (JPM:tessy; 12/19/2021) . 02 Electronically signed: . Julio Warren MD, Pathologist NPI- [id number] . 01 Gross description: . A. The specimen is received in formalin, labeled "Chula [place], rectal polyp biopsy". Received are two segments of pale isidro tissue measuring 0.3 and 0.4 cm in maximum dimensions. The specimen is submitted entirely in cassette A1. . B. The specimen is received in formalin, labeled "[place]ula [place], sigmoid polypectomy biopsy". Received are two segments of light isidro tissue measuring 0.6 and 0.7 cm in maximum dimensions. The specimen is submitted entirely in cassette B1. . C. The specimen is received in formalin, labeled "Chula [place], transverse colon polyp biopsy because ". Received are four segments of pale isidro tissue ranging in size from 0.3-0.4 cm in maximum dimensions. The specimen is submitted entirely in cassette C1. (CAA; 12/18/2021) QAC/QAC 12/18/2021 1548 Local . 02 Pathologist provided ICD-10: K62.1, K63.5, D12.3 . 02 CPT . 743342, 552355, 837705 Specimen Comment: A courtesy copy of this report has been sent to [phone], [phone] Specimen Comment: [id number] Specimen Comment: Report sent to / DR CARRERA Specimen Comment: A duplicate report has been generated due to demographic updates. Performed at: [facility] [address] [facility] [address], [place] [id number] MD Nickolas Kiran MD Phone: [phone] Performed at: [facility] [address], [place] [id number] MD Julio Warren MD Phone: [phone]
== END | disposition home or self-care (01) ==
LOC: ENDOS 07:20
PROVIDERS: ATTEND Internal Medicine Gastroenterology
DX: Z12.11 Encounter for screening for malignant neoplasm of colon (principal); D12.3 Benign neoplasm of transverse colon; K62.1 Rectal polyp; K63.89 Other specified diseases of intestine; J44.9 Chronic obstructive pulmonary disease, unspecified; E78.00 Pure hypercholesterolemia, unspecified; E66.9 Obesity, unspecified; K21.9 Gastro-esophageal reflux disease without esophagitis; F17.210 Nicotine dependence, cigarettes, uncomplicated; Z90.49 Acquired absence of other specified parts of digestive tract; Z86.010 Personal history of colon polyps; Z98.890 Other specified postprocedural states; Z79.899 Other long term (current) drug therapy; Z88.8 Allergy status to other drugs, medicaments and biological substances
CPT/HCPCS: 45380; 45385; J2704; 88305

== ENCOUNTER → 2021-12-24 | Outpatient (CLI) | payer MEDICARE, OTHER ==
[2021-12-18 10:05] VITALS: BP 138/60
[~2021-12-24] MED LIST changes: +GADOTERATE 7.5 MMOL/15ML VIAL. IVP ONE; -HYDROmorphone 2 MG/ML INJ. IVP PRN; -IV RINGERS,LACTATED 1000ML 1,000 ML IV SCH; -LIDOCAINE 2% PF 5 ML VIAL. ONE; -MORPHINE SULFATE 2 MG/ML INJ. IVP PRN; -PROCHLORPERAZINE 10 MG/2 ML VIAL. IVP PRN; -PROPOFOL 10 MG/ML (20ML) VIAL. IV ONE; -fentaNYL PF VIAL 100 MCG/2 ML VIAL IVP PRN
--- NOTE | 2021-12-24 13:47 | KCIC ---
Study: MRI right ankle with and without contrast INDICATION: Right ankle nonhealing wound. COMPARISON: Most recent right ankle radiographs from 09/19/2021 TECHNIQUE: Multiplanar MR imaging of the right ankle performed both prior to and after the intravenou s administration of 14 cc Clariscan. FINDINGS: Mildly degraded study on account of patient motion. Bones/cartilage: Tibial plafond ghost tracks in the setting of screw explantation since the most rece nt radiographs. Healed posterior malleolus fracture with mild residual deformity of the tibial articu lar surface posteriorly. Chondrosis at the posterior and posterior/medial ankle, primarily at the pos teromedial tibial plafond, which is partly high-grade/full-thickness with tibial subchondral cystic c hange. Chronic bony irregularity at the lateral more so than medial malleoli and at the distal syndes mosis. No acute fracture. No signal changes of osteomyelitis at the ankle or throughout the imaged fo ot. Plantar calcaneal spur. Ligaments: Sequela of previous sprain of the anterior/inferior tibiofibular ligament. Thin but intact ATFL. The CFL and PTFL remain intact. Intact deltoid ligament complex. Intact spring and Lisfranc li gaments. Musculotendinous: Peroneus brevis split tear seen at and extending beyond the lateral malleolus. Inta ct peroneus longus. Intact PTT, FDL and FHL. Unremarkable extensors. Within normal limits signal and morphology of the Achilles. Edema of Kager's fat pad and a small amount of fluid within the retrocalc aneal bursa. Sinus Tarsi: Maintained fatty signal. Tarsal tunnel: Unremarkable. Plantar fascia: Mild thickening of the central band proximally without findings of active plantar fas ciitis. Miscellaneous: Small pocket of fluid signal adjacent to the tip of the lateral malleolus measuring 8 x 3 x 10 mm, image 21 series 6. No surrounding edema to indicate an infected collection. IMPRESSION: 1. Healed posterior malleolus fracture status post screw removal. Mild residual deformity of the pos terior tibial plafond at the fracture site. Posttraumatic chondrosis at the posterior/posteromedial a nkle joint and subchondral cystic change at the posteromedial tibial plafond. 2. There appears to be a small pocket of fluid adjacent to the tip of the lateral malleolus (image 2 1 series 6) which measures 8 x 3 x 10 mm. Sterility is ultimately indeterminate by its imaging appear ance alone but there is no surrounding subcutaneous edema to indicate an abscess. No signal changes o f osteomyelitis at the lateral malleolus or elsewhere. 3. Peroneus brevis split tear extending above and below the tip of the lateral malleolus. Kager's fa t pad edema and a small amount of retrocalcaneal bursal fluid which could be secondary to Achilles pa ratenonitis noting that the Achilles tendon itself is unremarkable. 4. Sequela of remote sprain of the anterior/inferior tibiofibular ligament. Otherwise intact medial and lateral ankle ligaments with relatively normal morphology. Electronically signed by: CEDRICK BENTON MD (12/24/2021 1:45 PM) [id number]
== END ==
LOC: KCIC MRI 07:51
PROVIDERS: ATTEND Internal Medicine Infectious Disease
DX: S86.311A Strain of muscle(s) and tendon(s) of peroneal muscle group at lower leg level, right leg, initial encounter (principal); S93.431S Sprain of tibiofibular ligament of right ankle, sequela; M21.6X1 Other acquired deformities of right foot; M25.871 Other specified joint disorders, right ankle and foot; X58.XXXA Exposure to other specified factors, initial encounter; Y93.89 Activity, other specified; Y92.89 Other specified places as the place of occurrence of the external cause; Y99.8 Other external cause status
CPT/HCPCS: 73723; 82565; A9575